=== PATIENT | male | born 1960 | race Two or more races ===

== ENCOUNTER 2018-05-07 15:09 | Outpatient (CLI) | payer OTHER ==
[2018-05-07 15:38] LABS: CALCIUM 9.4 mg/dL (8.5-10.3); CREATININE 0.8 mg/dL (0.6-1.2)
[2018-05-07 16:02] LABS: HB2 TOTAL 17.5 g/dL; HEMOGLOBIN A1C 1.58 g/dL; HEMOGLOBIN A1C % 10.4 % (4.6-6.2)
== END 2018-05-07 15:10 | disposition home or self-care (01) ==
LOC: LAB 15:09
PROVIDERS: ATTEND Internal Medicine
DX: E11.9 Type 2 diabetes mellitus without complications (principal)
CPT/HCPCS: 36415; 80048; 83036

== ENCOUNTER 2018-07-26 13:50 | Outpatient (CLI) | payer OTHER ==
[2018-07-26 14:03] LABS: BASOPHILS # (AUTO) 0.1 10^3/uL (0.0-0.1); BASOPHILS % (AUTO) 0.9 %; EOSINOPHILS # (AUTO) 0.1 10^3/uL (0.0-0.7); EOSINOPHILS % (AUTO) 1.3 %; HGB - HEMOGLOBIN 16.2 g/dL (14.0-18.0); LYMPHOCYTES # (AUTO) 2.2 10^3/uL (1.5-3.5); MEAN CORPUSCULAR HEMOGLOBIN 32.8 pg (27.0-31.0); MEAN CORPUSCULAR HGB CONC 34.5 g/dL (32.0-36.0); MEAN CORPUSCULAR VOLUME 95.2 fL (80.0-94.0); MEAN PLATELET VOLUME 7.7 fL (7.4-11.4); MONOCYTES # (AUTO) 0.4 10^3/uL (0.0-1.0); MONOCYTES % (AUTO) 4.9 %; NEUTROPHILS # (AUTO) 4.7 10^3/uL (1.5-6.6); NEUTROPHILS % (AUTO) 62.9 %; PLT - PLATELET COUNT 229 10^3/uL (130-450); RED BLOOD COUNT 4.94 10^6/uL (4.70-6.10); RED CELL DISTRIBUTION WIDTH 12.1 % (12.0-15.0); WHITE BLOOD COUNT 7.4 x10^3/uL (4.8-10.8)
[2018-07-26 14:14] LABS: CALCIUM 10.1 mg/dL (8.5-10.3); CREATININE 0.9 mg/dL (0.6-1.2)
[2018-07-26 14:30] LABS: HB2 TOTAL 17.2 g/dL; HEMOGLOBIN A1C 1.56 g/dL; HEMOGLOBIN A1C % 10.4 % (4.6-6.2)
== END 2018-07-26 13:51 | disposition home or self-care (01) ==
LOC: LAB 13:50
PROVIDERS: ATTEND Internal Medicine
DX: E11.9 Type 2 diabetes mellitus without complications (principal); Z79.899 Other long term (current) drug therapy
CPT/HCPCS: 36415; 80048; 83036; 85025

== ENCOUNTER 2019-09-08 11:10 | Outpatient (CLI) | payer BC, OTHER ==
--- NOTE | 2019-09-08 13:57 | Ultrasound Report ---
Reason: SCREENING FOR AAA Procedure Date: 09/08/2019 Accession Number: [id number] / [id number] Procedure: US - Aorta Screening CPT Code: Final Report FULL RESULT: EXAM: AORTIC DOPPLER ULTRASOUND EXAM DATE: 09/08/2019 11:28 AM. CLINICAL HISTORY: Screening for AAA. COMPARISON: None. TECHNIQUE: Real-time sonographic imaging of retroperitoneal vascular structures, including color-flow, Doppler flow and spectral analysis was performed by the inventory administrator. Multiple congressional representative static images were saved for review. FINDINGS: Aorta: The abdominal aorta was adequately visualized. No evidence for abdominal aortic aneurysm. Aorta: Proximal: Sagittal AP: 2.3 cm. Mid: Transverse: 1.8 x 1.8 cm. Distal: Transverse: 1.6 x 2.0 cm. Caliber WNL: Yes. Plaque visualized: Yes. Iliacs: Right Iliac: Transverse: 1.3 x 1.2 cm. Left Iliac: Transverse: 1.0 x 1.3 cm. Iliac Vessels: The visualized proximal common iliac arteries are normal in caliber. Other: None. IMPRESSION: No abdominal aortic aneurysm. RADIA
== END 2019-09-08 11:11 | disposition home or self-care (01) ==
LOC: DI 11:10
PROVIDERS: ATTEND Internal Medicine
DX: Z13.6 Encounter for screening for cardiovascular disorders (principal)
CPT/HCPCS: 76706

== ENCOUNTER 2022-02-28 19:13 | Emergency (ER) | payer BC, OTHER ==
[2022-02-28 19:47] LABS: BASOPHILS # (AUTO) 0.1 10^3/uL (0.0-0.1); BASOPHILS % (AUTO) 0.5 %; EOSINOPHILS # (AUTO) 0.4 10^3/uL (0.0-0.7); EOSINOPHILS % (AUTO) 2.8 %; HCT - HEMATOCRIT 35.3 % (42.0-52.0); HGB - HEMOGLOBIN 11.7 g/dL (14.0-18.0); LYMPHOCYTES # (AUTO) 3.2 10^3/uL (1.5-3.5); LYMPHOCYTES % (AUTO) 25.4 %; MEAN CORPUSCULAR HEMOGLOBIN 32.8 pg (27.0-31.0); MEAN CORPUSCULAR HGB CONC 33.1 g/dL (32.0-36.0); MEAN CORPUSCULAR VOLUME 98.9 fL (80.0-94.0); MEAN PLATELET VOLUME 10.2 fL (7.4-11.4); MONOCYTES # (AUTO) 0.8 10^3/uL (0.0-1.0); MONOCYTES % (AUTO) 6.6 %; NEUTROPHILS # (AUTO) 8.2 10^3/uL (1.5-6.6); NEUTROPHILS % (AUTO) 64.2 %; PLT - PLATELET COUNT 321 10^3/uL (130-450); RED BLOOD COUNT 3.57 10^6/uL (4.70-6.10); RED CELL DISTRIBUTION WIDTH 11.9 % (12.0-15.0); WHITE BLOOD COUNT 12.8 x10^3/uL (4.8-10.8)
--- OUTSIDE RECORDS SUMMARY | 2022-02-28 19:48 | EXTERNAL MEDICAL SUMMARY RPT | Continuity of Care Document ---
:1960 Author Organization [facility] Address [address] [place] [address] Phone Allergies No information. Encounters No information. Functional Status No information. Immunizations No information. Medications date description facility [id number]+0000 insulin glargine All [id number]+0000 dorzolamide-timolol All [id number]+0000 netarsudil-latanoprost All [id number]+0000 atorvastatin All [id number]+0000 clopidogrel All [id number]+0000 dorzolamide-timolol All [id number]+0000 metformin All [id number]+0000 clopidogrel All [id number]+0000 atorvastatin All [id number]+0000 netarsudil-latanoprost All [id number]+0000 insulin glargine All 68879926083731+0000 metformin All [id number]+0000 lancets All [id number]+0000 blood sugar diagnostic All Problems No information. Procedures date description facility [id number] Visit Code Hold All [id number]+0000 Visit Code Hold All [id number]+0000 TROPONIN I HIGH SENSITIVITY All Results/Labs test date author facility value unit interpret ation Result panel 1 (unknown) (no (unknown) (unknown) (no value) (units (unk nown) date) unknown) (unknown) (no (unknown) (unknown) [address] [place] [address] (units (unknown) date) unknown) (unknown) (no (unknown) (unknown) [place], [place] (units ( unknown) date) [address] unknown) (unknown) (no (unknown) (unknown) CT Scan Report (units (unknown) date) unknown) (unknown) (no (unknown) (unknown) [facility] (units (unknown) date) unknown) (unknown) (no (unknown) (unknown) Signed (units (unkno wn) date) unknown) (unknown) (no (unknown) (unknown) (no value) (units (unk nown) date) unknown) (unknown) (no (unknown) (unknown) 02/21/22 (units (unkno wn) date) unknown) (unknown) (no (unknown) (unknown) Approved by: (units (u nknown) date) Franck Palacios M.D. unknown) on 02/21/2022 at 9:41 (unknown) (no (unknown) (unknown) Brain: No (units (unk nown) date) intracranial unknown) bleeds or masses. There is cerebral volume loss for (unknown) (no (unknown) (unknown) COMPARISON: (units (un known) date) None. unknown) (unknown) (no (unknown) (unknown) CSF spaces: (units (un known) date) Basal cisterns are unknown) patent. No extra-axial fluid collections. The (unknown) (no (unknown) (unknown) Dictated by: (units (u nknown) date) Franck Palacios M.D. unknown) on 02/21/2022 at 9:39 (unknown) (no (unknown) (unknown) FINDINGS: (units (unkn own) date) unknown) (unknown) (no (unknown) (unknown) IMPRESSION: (units (un known) date) unknown) (unknown) (no (unknown) (unknown) INDICATIONS: (units (u nknown) date) Hemiplegia, unknown) unspecified affecting left nondominant side (unknown) (no (unknown) (unknown) Image quality: (units (unknown) date) Excellent. unknown) (unknown) (no (unknown) (unknown) Mild global (units (un known) date) cerebral volume unknown) loss and chronic microvascular ischemic changes. (unknown) (no (unknown) (unknown) No acute finding. (units (unknown) date) unknown) (unknown) (no (unknown) (unknown) Noncontrast 4.5 (units (unknown) date) mm thick angled unknown) axial sections acquired from the foramen magnum (unknown) (no (unknown) (unknown) Sinuses: (units (unkno wn) date) Visualized sinuses unknown) and mastoids are clear. (unknown) (no (unknown) (unknown) Skull and face: (units (unknown) date) Calvarium and unknown) visualized facial bones appear intact, without (unknown) (no (unknown) (unknown) TECHNIQUE: (units (unk nown) date) unknown) (unknown) (no (unknown) (unknown) artery (units (unkno wn) date) atherosclerosis. unknown) (unknown) (no (unknown) (unknown) lesions. (units (unkno wn) date) unknown) (unknown) (no (unknown) (unknown) matter chronic (units (unknown) date) small vessel unknown) ischemic changes. There is intracranial internal (unknown) (no (unknown) (unknown) resultant (units (unkn own) date) ventricular and unknown) sulcal prominence. There are periventricular and (unknown) (no (unknown) (unknown) size. (units (unkno wn) date) unknown) (unknown) (no (unknown) (unknown) ventricles are (units (unknown) date) symmetric in size unknown) and shape. (unknown) (no (unknown) (unknown) vertex, with (units (u nknown) date) coronal and unknown) sagittal reformats. For radiation dose reduction, the (unknown) (no (unknown) (unknown) was used: (units (unkn own) date) automated exposure unknown) control, adjustment of mA and/or kV according to (unknown) (no (unknown) (unknown) [id number] (units (unkno wn) date) unknown) (unknown) (no (unknown) (unknown) Accession Number: (units (unknown) date) [id number] unknown) (unknown) (no (unknown) (unknown) Age/Sex: 61 / M (units (unknown) date) Date of Service: unknown) (unknown) (no (unknown) (unknown) : 1960 (units (unknown) date) Acct:[id number] unknown) (unknown) (no (unknown) (unknown) Loc: CT (units (unkno wn) date) unknown) (unknown) (no (unknown) (unknown) Ordering (units (unkno wn) date) Provider: unknown) Rita Crum P.A-C (unknown) (no (unknown) (unknown) PROCEDURE: CT (units (unknown) date) HEAD/BRAIN WO CON unknown) (unknown) (no (unknown) (unknown) Patient: (units (unkno wn) date) Servania,Roly unknown) MR#: [id number] (unknown) (no (unknown) (unknown) Procedure: CT (units ( unknown) date) head/brain wo con unknown) (unknown) (no (unknown) (unknown) age, with (units (unkn own) date) unknown) (unknown) (no (unknown) (unknown) carotid (units (unkno wn) date) unknown) (unknown) (no (unknown) (unknown) deep white (units (unk nown) date) unknown) (unknown) (no (unknown) (unknown) following (units (unkn own) date) unknown) (unknown) (no (unknown) (unknown) patient (units (unkno wn) date) unknown) (unknown) (no (unknown) (unknown) suspicious (units (unk nown) date) unknown) (unknown) (no (unknown) (unknown) to the (units (unkno wn) date) unknown) Social History No information. Vital Signs date measurement value units +0000 BMI BMI 26.25 kg/m2 +0000 BP_diastolic BP_diastolic 99 mm[H g] +0000 BP_systolic BP_systolic 194 mm[Hg] +0000 heart_rate heart_rate 98 /min +0000 height_metric height_metric 170.18 cm +0000 height_standard height_standard 67 in +0000 respiration_rate respiration_rate 18 /min +0000 temperature_metric temperature_metric 36.67 C +0000 temperature_standard temperature_standard 9 8 F +0000 weight_metric weight_metric 75.75 kg +0000 weight_standard weight_standard 167 lb [id number]+0000 BMI BMI 26.06 kg/m2 [id number]+0000 BP_diastolic BP_diastolic 98 mm[H g] [id number]+0000 BP_systolic BP_systolic 176 mm[Hg] [id number]+0000 heart_rate heart_rate 100 /min [id number]+0000 height_metric height_metric 170.18 cm [id number]+0000 height_standard height_standard 67 in [id number]+0000 respiration_rate respiration_rate 17 /min +0000 temperature_metric temperature_metric 36.44 C +0000 temperature_standard temperature_standard 9 7.6 F +0000 weight_metric weight_metric 75.21 kg +0000 weight_standard weight_standard 165.8 lb
[2022-02-28 19:56] LABS: ALBUMIN 3.8 g/dL (3.2-5.5); ALBUMIN/GLOBULIN RATIO 1.2 (1.0-2.2); CALCIUM 9.7 mg/dL (8.5-10.3); CREATININE 1.2 mg/dL (0.6-1.2); POTASSIUM 3.9 mmol/L (3.5-5.0); TOTAL PROTEIN 7.1 g/dL (6.7-8.2)
--- NOTE | 2022-02-28 20:07 | XRAY Report ---
PROCEDURE: Chest 1 View X-Ray INDICATIONS: Chest pain TECHNIQUE: One view of the chest was acquired. COMPARISON: None. FINDINGS: Surgical changes and devices: None. Lungs and pleura: No pleural effusions or pneumothorax. Lungs appear clear. Mediastinum: Mediastinal contours appear normal. Heart size is normal. Bones and chest wall: No suspicious bony lesions. Overlying soft tissues appear unremarkable. IMPRESSION: No acute cardiopulmonary abnormality identified. Reviewed by: Brandon Handy MD on 02/28/2022 8:05 PM PDT Approved by: Brandon Handy MD on 02/28/2022 8:05 PM PDT Station ID: [id number]
[2022-02-28] MEDS ORDERED: ENOXAPARIN 80 MG/0.8 ML SYRINGE SUBQ STA (20:22)
[2022-02-28] MEDS ORDERED: ASPIRIN CHEW 81 MG TABLET PO STA (20:22)
--- NOTE | 2022-02-28 20:25 | ED Physician Documentation ---
PD HPI CHEST PAIN - Stated complaint Stated Complaint: ABNORMAL EKG - Chief complaint Chief Complaint: Cardiac - History obtained from History obtained from: Patient - History of Present Illness Timing - onset during: Exertion Timing - details: Gradual onset Pain level max: 7 Pain level now: 4 Quality: Pressure, Tightness Location: Substernal Radiation: No: Jaw, Neck, Back, Abdominal, Left upper extremity, Right upper extremity Improved by: Rest Worsened by: Exertion Associated symptoms: Shortness of air. No: Diaphoresis, Nausea, Vomiting, General Weakness, Palpitations, Cough - Additional information Additional information: Patient is a 61-year-old male who presents to the emergency department with chest pain. This been ongoing for the past 2 weeks intermittently. He states that normally occurs with exertion. When he stops the pressure last for about 5 to 10 minutes and then resolves. He states that today it began occurring at rest. He went to the walk-in clinic and had a "abnormal EKG" and an elevated troponin so they sent him here. The patient is on aspirin. He states he is on Plavix as well but does not know why. He denies any cardiac history. Denies ever having a cardiac stress test or a stent. Patient does have a history of hypertension, hyperlipidemia and diabetes. Review of Systems Ten Systems: 10 systems reviewed and negative Constitutional: denies: Fever, Chills Nose: denies: Rhinorrhea / runny nose, Congestion Throat: denies: Sore throat Cardiac: denies: Palpitations Respiratory: denies: Dyspnea, Cough GI: denies: Abdominal Pain, Nausea, Vomiting, Diarrhea Skin: denies: Rash Musculoskeletal: denies: Neck pain, Back pain Neurologic: denies: Headache PD PAST MEDICAL HISTORY - Past Medical History Past Medical History: Yes Cardiovascular: Hypertension, High cholesterol Endocrine/Autoimmune: Type 2 diabetes - Past Surgical History Past Surgical History: No - Allergies Allergies/Adverse Reactions: Allergies Allergy/AdvReac Type Severity Reaction Status Date / Time No Known Drug Allergies Allergy Verified 02/28/22 19:20 - Living Situation Living Situation: reports: With family Living Arrangement: reports: At home - Social History Does the pt smoke?: No Does the pt have substance abuse?: No - Family History Family history: reports: CAD PD ED PE NORMAL - Vitals Vital signs reviewed: Yes - General General: Alert and oriented X 3, No acute distress, Well developed/nourished - HEENT HEENT: PERRL, Moist mucous membranes - Neck Neck: Supple, no meningeal sign - Cardiac Cardiac: RRR, No murmur, Strong equal pulses - Respiratory Respiratory: No respiratory distress, Clear bilaterally - Abdomen Abdomen: Soft, Non tender, Non distended - Derm Derm: Warm and dry, No rash - Extremities Extremities: No edema, No calf tenderness / cord - Neuro Neuro: Alert and oriented X 3 - Psych Psych: Normal mood, Normal affect Results - Vitals Vitals: Vital Signs - 24 hr 02/28/22 02/28/22 02/28/22 19:20 19:25 19:55 Temperature 36.5 C Heart Rate 110 H 106 H 106 H Respiratory 16 23 24 Rate Blood Pressure 150/82 H 154/108 H O2 Saturation 100 99 99 02/28/22 02/28/22 02/28/22 20:25 20:30 21:18 Temperature Heart Rate 105 H 109 H 112 H Respiratory 23 18 23 Rate Blood Pressure 149/97 H 152/87 H 152/87 H O2 Saturation 99 98 100 Oxygen O2 Source Room air - EKG (time done) 1921 Rate: Rate (enter#) (110) Rhythm: Sinus tachycardia [place]: Normal Intervals: Normal LA QRS: Normal Ischemia: ST depression (I, avL, V4-6) Compare to prior EKG: Old EKG unavailable - Labs Labs: Laboratory Tests 02/28/22 02/28/22 02/28/22 19:36 19:36 19:36 WBC 12.8 H RBC 3.57 L Hgb 11.7 L Hct 35.3 L MCV 98.9 H MCH 32.8 H MCHC 33.1 RDW 11.9 L Plt Count 321 MPV 10.2 Neut # (Auto) 8.2 H Lymph # (Auto) 3.2 Hill # (Auto) 0.8 Eos # (Auto) 0.4 Baso # (Auto) 0.1 Absolute Nucleated RBC 0.00 Nucleated RBC % 0.0 PT INR Sodium 138 Potassium 3.9 Chloride 100 L Carbon Dioxide 26 Anion Gap 12.0 BUN 22 H Creatinine 1.2 Estimated GFR (MDRD) 61 L Glucose 193 H POC Whole Bld Glucose Calcium 9.7 Total Bilirubin 1.0 AST 25 ALT 29 Alkaline Phosphatase 54 Troponin I High Sens 114.3 H* Total Protein 7.1 Albumin 3.8 Globulin 3.3 Albumin/Globulin Ratio 1.2 Lipase 66 H Nasal Adenovirus (PCR) Nasal B. parapertussis DNA (PCR) Nasal Coronavir 229E PCR Nasal Coronavir HKU1 PCR Nasal Coronavir NL63 PCR Nasal Coronavir OC43 PCR Nasal Enterovir/Rhinovir PCR Nasal Influenza B PCR Nasal Influenza A PCR Nasal Parainfluen 1 PCR Nasal Parainfluen 2 PCR Nasal Parainfluen 3 PCR Nasal Parainfluen 4 PCR Nasal RSV (PCR) Nasal B.pertussis DNA PCR Nasal C.pneumoniae (PCR) Chauncey Human Metapneumo PCR Nasal M.pneumoniae (PCR) Nasal SARS-CoV-2 (PCR) 02/28/22 02/28/22 02/28/22 19:39 20:54 20:57 WBC RBC Hgb Hct MCV MCH MCHC RDW Plt Count MPV Neut # (Auto) Lymph # (Auto) Hill # (Auto) Eos # (Auto) Baso # (Auto) Absolute Nucleated RBC Nucleated RBC % PT 11.0 INR 1.0 Sodium Potassium Chloride Carbon Dioxide Anion Gap BUN Creatinine Estimated GFR (MDRD) Glucose POC Whole Bld Glucose 232 H Calcium Total Bilirubin AST ALT Alkaline Phosphatase Troponin I High Sens Total Protein Albumin Globulin Albumin/Globulin Ratio Lipase Nasal Adenovirus (PCR) NOT DETECTED Nasal B. parapertussis DNA (PCR) NOT DETECTED Nasal Coronavir 229E PCR NOT DETECTED Nasal Coronavir HKU1 PCR NOT DETECTED Nasal Coronavir NL63 PCR NOT DETECTED Nasal Coronavir OC43 PCR NOT DETECTED Nasal Enterovir/Rhinovir PCR NOT DETECTED Nasal Influenza B PCR NOT DETECTED Nasal Influenza A PCR NOT DETECTED Nasal Parainfluen 1 PCR NOT DETECTED Nasal Parainfluen 2 PCR NOT DETECTED Nasal Parainfluen 3 PCR NOT DETECTED Nasal Parainfluen 4 PCR NOT DETECTED Nasal RSV (PCR) NOT DETECTED Nasal B.pertussis DNA PCR NOT DETECTED Nasal C.pneumoniae (PCR) NOT DETECTED Chauncey Human Metapneumo PCR NOT DETECTED Nasal M.pneumoniae (PCR) NOT DETECTED Nasal SARS-CoV-2 (PCR) NOT DETECTED - Rads (name of study) cxr Radiology: Final report received, EMP read contemporaneously, See rad report (No acute abnormality) PD MEDICAL DECISION MAKING - ED course Complexity details: reviewed results, re-evaluated patient, considered differential, d/w patient ED course: Patient is a 61-year-old male who presents to the emergency department with what sounds like stable angina over the past week that has now progressed to unstable angina. Also has a slight high-sensitivity troponin elevation. We will treat as an NSTEMI/UA. He was started on Lovenox, 1 mg per kg subq. He already took his Plavix, atorvastatin today. He has asymptomatic here. EKG is concerning for ST depression in the lateral leads. No ST elevation. He was given aspirin here as well. There are no beds available at any hospitals in the [facility]. He is on several wait list. I did discuss the case with Dr. Jones, cardiology from [facility] who does recommend that he be transferred to a cath capable center for heart catheterization. Patient will be signed out to the oncoming emergency department physician awaiting placement. This document was made in part using voice recognition software. While efforts are made to proofread this document, sound alike and grammatical errors may occur. Departure - Departure Disposition: 02 Transfer Acute Care Hosp Clinical Impression: Unstable angina, NSTEMI (non-ST elevated myocardial infarction) Condition: Stable
[2022-02-28] MEDS ORDERED: INSULIN GLARGINE 300 UNIT/3 ML PEN SUBQ STA (20:56)
[2022-02-28 21:52] LABS: CORONAVIRUS 229E-RESP PCR NOT DETECTED
[2022-02-28 21:53] LABS: B. PARAPERTUSSIS- RESP PCR PAN NOT DETECTED; B. PERTUSSIS- RESP PCR PANEL NOT DETECTED; C. PNEUMONIAE- RESP PCR PANEL NOT DETECTED; CORONAVIRUS HKU1-RESP PCR NOT DETECTED; CORONAVIRUS NL63-RESP PCR NOT DETECTED; CORONAVIRUS OC43-RESP PCR NOT DETECTED; HUMAN METAPNEUMOVIRUS NOT DETECTED; INFLUENZA A- RESP PCR PANEL NOT DETECTED; INFLUENZA B - RESP PCR PANEL NOT DETECTED; M. PNEUMONIAE- RESP PCR PANEL NOT DETECTED; PARAINFLUENZA VIRUS 1 NOT DETECTED; PARAINFLUENZA VIRUS 2 NOT DETECTED; PARAINFLUENZA VIRUS 3 NOT DETECTED; PARAINFLUENZA VIRUS 4 NOT DETECTED; RHINOVIRUS/ENTEROVIRUS NOT DETECTED; RSV- RESP PCR PANEL NOT DETECTED; SARS-CoV-2 -RESP PCR PANEL NOT DETECTED
[2022-03-01 06:28] LABS: CALCIUM 9.3 mg/dL (8.5-10.3); CREATININE 0.9 mg/dL (0.6-1.2); POTASSIUM 3.6 mmol/L (3.5-5.0)
[2022-03-01] MEDS: ENOXAPARIN 80 MG/0.8 ML SYRINGE SUBQ SCH ×2 (09:26→20:54)
[2022-03-01] MEDS: ASPIRIN EC 325 MG TABLET PO SCH (09:26)
[2022-03-01] MEDS: CLOPIDOGREL 75 MG TABLET PO SCH (09:26)
--- NOTE | 2022-03-01 18:27 | ED Physician Documentation ---
ED Addendum - Addendum Addendum: 03/01/22 18:26 We are continuing to look for placement for the patient. There are still no beds available in the region. He remains on 4 waitlist. He is asymptomatic currently today. Receiving Lovenox twice daily as well as staying on the aspirin, Plavix and atorvastatin.
[2022-03-01] MEDS ORDERED: ATORVASTATIN 40 MG TABLET PO SCH (21:00)
--- NOTE | 2022-03-01 23:35 | ED Physician Documentation ---
ED Addendum - Addendum Addendum: 03/01/22 23:[address] Sterling Marte (Cardiology, [place]) Who graciously agrees to accept the patient for transfer for treatment of an NSTEMI. Cardiology is not in-house overnight so patient would likely not be able to be transferred until material hauler hours around 8 AM. I did update the patient and his family member at the bedside. 03/02/22 07:11 Opponent slightly decreased. Patient remains pain-free. Pending transfer this morning to [facility]. Care turned over to Dr. Sheppard.
[2022-03-02 06:36] LABS: BASOPHILS # (AUTO) 0.1 10^3/uL (0.0-0.1); BASOPHILS % (AUTO) 0.6 %; EOSINOPHILS # (AUTO) 0.3 10^3/uL (0.0-0.7); EOSINOPHILS % (AUTO) 3.2 %; HCT - HEMATOCRIT 29.7 % (42.0-52.0); HGB - HEMOGLOBIN 9.9 g/dL (14.0-18.0); LYMPHOCYTES # (AUTO) 2.6 10^3/uL (1.5-3.5); LYMPHOCYTES % (AUTO) 31.9 %; MEAN CORPUSCULAR HEMOGLOBIN 32.4 pg (27.0-31.0); MEAN CORPUSCULAR HGB CONC 33.3 g/dL (32.0-36.0); MEAN CORPUSCULAR VOLUME 97.1 fL (80.0-94.0); MEAN PLATELET VOLUME 10.3 fL (7.4-11.4); MONOCYTES # (AUTO) 0.6 10^3/uL (0.0-1.0); MONOCYTES % (AUTO) 6.9 %; NEUTROPHILS # (AUTO) 4.7 10^3/uL (1.5-6.6); PLT - PLATELET COUNT 279 10^3/uL (130-450); RED BLOOD COUNT 3.06 10^6/uL (4.70-6.10); RED CELL DISTRIBUTION WIDTH 12.2 % (12.0-15.0); WHITE BLOOD COUNT 8.2 x10^3/uL (4.8-10.8)
[2022-03-02 06:46] LABS: CREATININE 0.9 mg/dL (0.6-1.2); POTASSIUM 3.5 mmol/L (3.5-5.0)
[2022-03-02 07:46] VITALS: BP 144/102
[2022-03-02] MEDS: CLOPIDOGREL 75 MG TABLET PO SCH (08:32)
[2022-03-02] MEDS: ENOXAPARIN 80 MG/0.8 ML SYRINGE SUBQ SCH (08:33)
[2022-03-02] MEDS: ASPIRIN EC 325 MG TABLET PO SCH (08:47)
== END 2022-03-02 09:13 | disposition short-term general hospital (02) ==
LOC: ED 19:13
DX: I21.4 Non-ST elevation (NSTEMI) myocardial infarction (principal); I10 Essential (primary) hypertension; Z20.822 Contact with and (suspected) exposure to COVID-19; R07.89 Other chest pain
CPT/HCPCS: 36415; 71045; 80048; 80053; 83690; 84484; 85025; 85610; 87633; 93005; 96372; 99285; A9270; J1650; J1815

== ENCOUNTER 2022-05-26 10:27 | Outpatient (CLI) | payer OTHER ==
[2022-05-26 10:46] LABS: BASOPHILS # (AUTO) 0.1 10^3/uL (0.0-0.1); BASOPHILS % (AUTO) 0.7 %; EOSINOPHILS # (AUTO) 0.5 10^3/uL (0.0-0.7); EOSINOPHILS % (AUTO) 6.8 %; HCT - HEMATOCRIT 39.1 % (42.0-52.0); HGB - HEMOGLOBIN 12.6 g/dL (14.0-18.0); LYMPHOCYTES # (AUTO) 1.9 10^3/uL (1.5-3.5); LYMPHOCYTES % (AUTO) 26.1 %; MEAN CORPUSCULAR HEMOGLOBIN 30.5 pg (27.0-31.0); MEAN CORPUSCULAR HGB CONC 32.2 g/dL (32.0-36.0); MEAN CORPUSCULAR VOLUME 94.7 fL (80.0-94.0); MEAN PLATELET VOLUME 9.8 fL (7.4-11.4); MONOCYTES # (AUTO) 0.6 10^3/uL (0.0-1.0); MONOCYTES % (AUTO) 7.9 %; NEUTROPHILS # (AUTO) 4.3 10^3/uL (1.5-6.6); NEUTROPHILS % (AUTO) 58.4 %; PLT - PLATELET COUNT 241 10^3/uL (130-450); RED BLOOD COUNT 4.13 10^6/uL (4.70-6.10); RED CELL DISTRIBUTION WIDTH 12.1 % (12.0-15.0); WHITE BLOOD COUNT 7.4 x10^3/uL (4.8-10.8)
[2022-05-26 11:01] LABS: CALCIUM 9.4 mg/dL (8.5-10.3)
[2022-05-26 11:41] LABS: ESTIMATED AVERAGE GLUCOSE 166 mg/dL (70-100); HEMOGLOBIN A1c% 7.4 % (4.27-6.07)
== END 2022-05-26 10:28 | disposition home or self-care (01) ==
LOC: LAB 10:27
PROVIDERS: ATTEND Internal Medicine
DX: I10 Essential (primary) hypertension (principal); I63.9 Cerebral infarction, unspecified; E11.9 Type 2 diabetes mellitus without complications; Z79.899 Other long term (current) drug therapy
CPT/HCPCS: 36415; 80048; 82607; 83036; 85025

== ENCOUNTER 2022-08-29 09:23 | Outpatient (CLI) | payer OTHER ==
[2022-08-29 09:37] LABS: BASOPHILS # (AUTO) 0.1 10^3/uL (0.0-0.1); BASOPHILS % (AUTO) 0.6 %; EOSINOPHILS # (AUTO) 0.7 10^3/uL (0.0-0.7); EOSINOPHILS % (AUTO) 8.9 %; HCT - HEMATOCRIT 35.6 % (42.0-52.0); HGB - HEMOGLOBIN 11.7 g/dL (14.0-18.0); LYMPHOCYTES # (AUTO) 1.7 10^3/uL (1.5-3.5); LYMPHOCYTES % (AUTO) 22.4 %; MEAN CORPUSCULAR HEMOGLOBIN 30.8 pg (27.0-31.0); MEAN CORPUSCULAR HGB CONC 32.9 g/dL (32.0-36.0); MEAN CORPUSCULAR VOLUME 93.7 fL (80.0-94.0); MEAN PLATELET VOLUME 9.5 fL (7.4-11.4); MONOCYTES # (AUTO) 0.7 10^3/uL (0.0-1.0); MONOCYTES % (AUTO) 8.5 %; NEUTROPHILS # (AUTO) 4.6 10^3/uL (1.5-6.6); NEUTROPHILS % (AUTO) 59.2 %; PLT - PLATELET COUNT 221 10^3/uL (130-450); RED CELL DISTRIBUTION WIDTH 11.9 % (12.0-15.0); WHITE BLOOD COUNT 7.8 x10^3/uL (4.8-10.8)
[2022-08-29 10:05] LABS: % IRON SATURATION 24 % (20-50); ALBUMIN/GLOBULIN RATIO 1.1 (1.0-2.2); ALKALINE PHOSPHATASE 53 IU/L (42-121); ALT ALANINE AMINOTRANSFERASE 37 IU/L (10-60); AST ASPARTATE AMINOTRANSFERASE 28 IU/L (10-42); BUN - BLOOD UREA NITROGEN 27 mg/dL (6-20); CARBON DIOXIDE - CO2 25 mmol/L (21-32); CHLORIDE 99 mmol/L (101-111); CHOL/HDL RATIO 3.8 (<5.0); CHOLESTEROL 145 mg/dL; CREATININE 1.2 mg/dL (0.6-1.2); GFR - MDRD 61 (>89); GLUCOSE 141 mg/dL (70-100); HDL CHOLESTEROL 38 mg/dL; IRON 75 ug/dL (45-182); LDL CHOLESTEROL,CALCULATED 89 mg/dL; LDL/HDL RATIO 2.3 (<3.6); POTASSIUM 3.6 mmol/L (3.5-5.0); SODIUM 133 mmol/L (135-145); TOTAL IRON BINDING CAPACITY 312 ug/dL (250-450); TOTAL PROTEIN 7.5 g/dL (6.7-8.2); TRANSFERRIN 223 mg/dL (180-329); TRIGLYCERIDES 88 mg/dL; VLDL CHOLESTEROL 18 mg/dL
[2022-08-29 10:07] LABS: THYROID STIMULATING HORMONE 4.62 uIU/mL (0.34-5.60)
[2022-08-29 10:15] LABS: FERRITIN 220.4 ng/mL (23.9-336.2)
[2022-08-29 10:19] LABS: FOLATE 12.54 ng/mL (5.90 - >24.8)
[2022-08-29 11:37] LABS: ESTIMATED AVERAGE GLUCOSE 154 mg/dL (70-100)
[2022-08-30 02:07] LABS: HCV AB 0.5 s/co ratio (0.0-0.9)
[2022-08-30 11:12] LABS: CREATININE,URINE 59.2 mg/dL; MICROALBUM/CREATININE RATIO,UR 4702.7 ug/mg (<30.0); MICROALBUMIN,URINE 278.4 mg/dL (0-300.0)
== END 2022-08-29 09:24 | disposition home or self-care (01) ==
LOC: LAB 09:23
PROVIDERS: ATTEND Internal Medicine
DX: Z00.00 Encounter for general adult medical examination without abnormal findings (principal); D64.9 Anemia, unspecified; I63.9 Cerebral infarction, unspecified; E11.9 Type 2 diabetes mellitus without complications; I10 Essential (primary) hypertension; M54.50 Low back pain, unspecified; Z12.5 Encounter for screening for malignant neoplasm of prostate; Z11.59 Encounter for screening for other viral diseases; Z79.899 Other long term (current) drug therapy
CPT/HCPCS: 36415; 80053; 80061; 82043; 82570; 82607; 82728; 82746; 83036; 83540; 83721; 84443; 84466; 85025; 86803

== ENCOUNTER 2022-09-06 14:01 | Outpatient (CLI) | payer OTHER ==
[2022-09-06 14:48] VITALS: BP 148/100
--- NOTE | 2022-09-06 14:48 | SLEEP CARE CONSULTATION ---
Information from patient questionnaire entered by Faiza Arroyo. I have reviewed and concur with the information entered by Faiza Arroyo. This document represents the service I personally performed and the decisions made by me, La Nena Kwok ARNP. History of Present Illness Service Date and Time: 09/06/2022 1401 Reason for Visit: New patient, Previously diagnosed sleep apnea (u), sleep apnea on CPAP therapy Accompanied by: Spouse Chief Complaint: reports: Snoring, Observed pauses in breathing Date of Onset: diagnosed last year Usual bedtime: 10 PM Time it takes to fall asleep: 30 minutes Snores at night: Yes Observed to quit breathing while asleep: Yes Sleeps alone due to snoring: Yes Number of times waking at night: 2 Reasons for waking at night: reports: Bathroom Toss, Turn, or Twitch while sleeping: No Recalls having dreams: No Usually gets out of bed at: 0600 Feels refreshed in the morning: Yes Morning headache: No (RESOLVES AROUND 6AM) Sleepy or fatigued during the day: No Ever fallen asleep while driving: No Takes day naps: Yes (none lately) Dreams during day naps: No Prior sleep studies: Yes [facility] and Where[facility] [place] [place] Additional HPI information: ROLY WASHINGTON was previously diagnosed to have moderate, AHI 29.3, obstructive sleep apnea-hypopnea syndrome and comes in today to establish care for CPAP therapy. He is accompanied by his today. His last sleep provider's office closed and he is need to establish with new office for monitoring of his CPAP. - Parasomnia Symptoms Ever been unable to move upon waking from sleep: No Walks in sleep: No Talks in sleep: No Ever acted out dreams in sleep: No Ever felt weak in the knees when startled or emotional: No Bothered by creepy, crawly, restless sensations in legs: No Problems with memory or concentration: No CPAP Compliance Data - Data Reviewed with Patient Average duration of nightly device use: 9 hours 15 minutes Compliance rate %: 100 (30/30 days used) Current pressure setting (cmH2O): 5-15 (avg 14.3, max 14.8) Average residual AHI: 3.2 Central apnea: 0.0 Obstructive apnea: 0.7 Compliance data discussion: Patient has a ResMed Airsense 11 that was set up on 06/2022. He is getting his supplies from [facility]. He is using a full face mask, 3B [place]. He changes the mask cushion monthly. Subjective Patient concerns: denies: aerophagia, mask discomfort, air blowing in eyes, mask leak noise, condensation in mask/hose, nasal congestion, dry mouth, nose, throat, epistaxis Observed to snore while using device: No Current pressure setting perceived as: comfortable On therapy, patient: reports: sleeping better, awakening more refreshed, being more awake and alert during the day, more rested overall. denies: drowsiness while driving Initial [place] Sleepiness Scale score: 5 (09/04/22) Past Medical History Past Medical History: reports: Hypertension, Diabetes, Stroke (02/10/2022), Anemia Social History The patient's occupation is a [employer]. Patient is and lives in [place]. Have you smoked in the past 12 months: No Cigarettes per day (20/pack): 20 Years of smokin Quit date: 1991 Smoking Pack Years: 8.0 Alcohol use: No Caffeine use: Yes Caffeine amount and frequency: 1-2 CUPS DAILY Family History Family history of sleep disordered breathing: No Allergies and Home Medications Known drug allergies: No Drug allergies reviewed: Yes (NKDA) Home medication list reviewed: Yes (see list scanned in/in EMR) Review of Systems Weight gain over past 5 years: 5 lbs Cardiovascular: reports: high blood pressure Respiratory: denies: shortness of breath Gastrointestinal: denies: heartburn Neurological: denies: headaches Psychiatric: denies: anxiety, depression Ear/Nose/Throat: denies: tonsillectomy Musculoskeletal: reports: back pain, mobility problems Physical Exam Vital signs obtained and entered by: FAIZA Echols MA Blood Pressure: 148/100 (LEFT ARM ) Cuff size: regular Heart Rate: 87 O2 Saturation: 98 Height: 5 ft 6 in Weight: 172 lb 3.2 oz Body Mass Index: 27.8 BMI Classification: Overweight Neck circumference: 16.25 Heart: regular rate and rhythm Lungs: clear bilaterally Impression and Plan 1. Obstructive Sleep Apnea-Hypopnea Syndrome, moderate, with good treatment compliance and good apnea control. On CPAP therapy, the patient has better sleep quality and is more rested overall. Patient's apnea severity and rationale for treatment to reduce apnea, improve sleep quality and reduce cardiovascular and cerebrovascular events was reviewed. I also reviewed the benefit of consistent device use of CPAP for hypertension, cerebrovascular disease and diabetes. 2. Overweight, unspecified. Currently patients BMI is 27.8. Obesity increases the risk of apnea, CPAP pressure requirements and overall health risks especially cardiovascular and diabetes. Thus patient is advised to lose weight. * Continue auto CPAP pressure at 5-15 cmH2O * Update supplies * Notify me if snoring with mask or feeling that the pressure is too much or too little * Attempt to lose weight * Call this office if any problems using CPAP * Return for follow up in [], or sooner if concerns arise Counseling Topics: Spare mask, Weight loss health impact Visit Type: In Office Provider Statement: I spent 100% of the Face to Face Visit with the patient with greater than 50% spent counseling the patient and coordination of care.
== END 2022-09-06 14:02 | disposition home or self-care (01) ==
LOC: SC 14:01
PROVIDERS: ATTEND Nurse Practitioner Family
DX: G47.33 Obstructive sleep apnea (adult) (pediatric) (principal); E66.3 Overweight; Z68.27 Body mass index [BMI] 27.0-27.9, adult; Z87.891 Personal history of nicotine dependence
CPT/HCPCS: 99203; 99212

== ENCOUNTER 2023-10-25 10:26 | Outpatient (CLI) | payer OTHER ==
--- NOTE | 2023-10-25 11:21 | Sleep Patient Instructions ---
Sleep Center Visit Summary - Patient Visit Information Reason for Visit: Annual Follow up - Patient Instructions Additional Instructions: You will continue with CPAP therapy with pressure set at 5-15 cmH2O. A supply prescription will be updated with your DME. I have added an order for a battery backup as requested. I have also added to have the machine serviced. We encourage you to continue to try to lose weight. Please follow up with the sleep care office in 1 year. - Clinic Information Contact: [facility] [address] [place] [address] [email or web address] T: [phone]
--- NOTE | 2023-10-25 11:25 | SLEEP CARE CONSULTATION ---
Information from patient questionnaire entered by Francine Arroyo. I have reviewed and concur with the information entered by Francine Arroyo. This document represents the service I personally performed and the decisions made by me, La Nena Kwok ARNP. History of Present Illness Service Date and Time: 10/25/2023 1026 Previous diagnosis: Moderate, Obstructive Sleep Apnea-Hypopnea Syndrome AHI: 29.3 (05/31/22) Reason for follow up: annual (LAST SEEM 08/2022) Accompanied by: Spouse (Rylee) Equipment type: CPAP (RESMED MACHINE AIRSENSE 11 SET UP 06/16/2022 NO UPDATE SINCE 8 MONTHS AGO NEED MACHINE) Equipment obtained from: Other ([facility]; getting supplies) Mask style: Full face Mask brand: Resmed (AirTouch F20, medium cushion) Backup mask available: Yes Last cushion change: 1 month Prior sleep studies: Yes Year and Where: 05/31/22 [facility] [place], [place] HPI additional information: ROLY WASHINGTON was diagnosed to have moderate, AHI 29.3, obstructive sleep apnea-hypopnea syndrome and returned today for CPAP therapy annual follow-up. Sleep Study - Results Prior sleep studies: Yes Year and Where: 05/31/22 [facility] [place], [place] CPAP Compliance Data - Data Reviewed with Patient Average duration of nightly device use: 10.1 hours Compliance rate %: 99 (12 month avg off machine; 365/365 days used) Current pressure setting (cmH2O): 5-15 (avg 1.2) Average residual AHI: 11.4 Central apnea: 0.6 Obstructive apnea: 0.3 Average large leak: 40 L/min Subjective Patient concerns: reports: dry mouth, nose, throat (dry mouth, occasional). denies: aerophagia, mask discomfort, air blowing in eyes, mask leak noise, condensation in mask/hose, epistaxis Observed to snore while using device: Yes (occasionally when on his side) Current pressure setting perceived as: comfortable On therapy, patient: reports: sleeping better, awakening more refreshed, being more awake and alert during the day, more rested overall. denies: drowsiness while driving (he does not drive) Initial [place] Sleepiness Scale score: 5 (09/04/22) Current [place] Sleepiness Scale score: 9 (10/25/23) Allergies and Home Medications Known drug allergies: No Drug allergies reviewed: Yes Home medication list reviewed: Yes (no changes) Allergy and home medication list: Allergies No Known Drug Allergies Allergy (Verified 10/23/23 09:49) Review of Systems Review of systems same as previous: Yes (NO CHANGE) Physical Exam Vital signs obtained and entered by: FRANCINE Echols MA Blood Pressure: 129/66 (LEFT ARM) Cuff size: regular Heart Rate: 49 O2 Saturation: 97 Height: 5 ft 6 in Weight: 189 lb 12.8 oz Body Mass Index: 30.6 BMI Classification: Obese Impression and Plan 1. Obstructive Sleep Apnea-Hypopnea Syndrome, moderate, with good treatment compliance and fair apnea control with elevated residual AHI. On CPAP therapy, the patient has better sleep quality and is more rested overall. His residual is mildly elevated with a large leak average of 40.1 L/minute. I think the elevation is falsely elevated and do not think he needs any pressure adjustment today. His machine is not uploading data to the website, not since February 2023. I was able to find a yearly data on the machine showing good compliance. Patient's apnea severity and rationale for treatment to reduce apnea, improve sleep quality and reduce cardiovascular and cerebrovascular events was reviewed. I also reviewed the benefit of consistent device use of CPAP for hypertension, cerebrovascular disease (stroke), diabetes. 2. Obesity, unspecified. Currently patients BMI is 30.6. Obesity increases the risk of apnea, CPAP pressure requirements and overall health risks especially cardiovascular and diabetes. Thus patient is advised to lose weight. * Continue auto CPAP pressure at 5-15 cmH2O * Service machine, not downloading data * Update supply prescription * Notify me if snoring with mask or feeling that the pressure is too much or too little * Attempt to lose weight * Call this office if any problems using CPAP * Return for follow up in 12 months, or sooner if concerns arise Continue with device pressure at (cmH2O): 5-15 Counseling Topics: Spare mask, Weight loss health impact Prescriptions: Device supplies Follow up with Sleep Care in: 1 year Visit Type: In Office Time Spent with Patient (minutes): 23 Provider Statement: I spent 100% of the Face to Face Visit with the patient with greater than 50% spent counseling the patient and coordination of care.
[2023-10-25 11:33] VITALS: BP 129/66; O2SAT 97
== END 2023-10-25 10:27 | disposition home or self-care (01) ==
LOC: SC 10:26
PROVIDERS: ATTEND Nurse Practitioner Family
DX: G47.33 Obstructive sleep apnea (adult) (pediatric) (principal); E66.9 Obesity, unspecified; Z68.30 Body mass index [BMI] 30.0-30.9, adult
CPT/HCPCS: 99212; 99213

== ENCOUNTER 2023-11-05 07:18 | Outpatient (CLI) | payer OTHER ==
--- NOTE | 2023-11-05 13:03 | Ultrasound Report ---
PROCEDURE: Abdomen Complete INDICATIONS: ABD DISTENTION TECHNIQUE: Real-time scanning was performed of the abdominal and retroperitoneal organs, with image documentatio n. COMPARISON: None. FINDINGS: Liver: Liver is normal in size and homogeneous in echotexture. Gallbladder: Unremarkable. Biliary ducts: Intrahepatic bile ducts are non-dilated. Extrahepatic bile duct caliber measures 6 m m. Normal is 6-7 mm or less in diameter, or 10 mm or less post-cholecystectomy. Pancreas: Visualized portions of the pancreas are sonographically normal. Spleen: Spleen is normal in size and homogeneous in echotexture. Kidneys: Kidneys are normal in size and echotexture. Right kidney measures 11.9 cm long; left kidne y measures 11.7 cm long. No hydronephrosis or nephrolithiasis. No solid masses. No complex renal cy stic lesions which require follow-up. Aorta: Visualized aorta is normal in caliber at less than 3 cm. Iliacs: Proximal common iliac arteries are normal in caliber at less than 2.5 cm. IVC: Intrahepatic inferior vena cava is patent. Miscellaneous: There is a moderate amount of perihepatic fluid and a small amount of perisplenic flu id. IMPRESSION: 1. Perihepatic and perisplenic fluid. 2. Otherwise unremarkable abdominal ultrasound. Reviewed by: Frieda Vargas MD on 11/05/2023 1:01 PM PDT Approved by: Frieda Vargas MD on 11/05/2023 1:01 PM PDT Station ID: [id number]
== END 2023-11-05 07:19 | disposition home or self-care (01) ==
LOC: DI 07:18
PROVIDERS: ATTEND Internal Medicine
DX: R19.07 Generalized intra-abdominal and pelvic swelling, mass and lump (principal)

== ENCOUNTER 2023-11-10 09:59 | Outpatient (CLI) | payer OTHER ==
[2023-11-10 10:20] LABS: BASOPHILS % (AUTO) 0.5 %; EOSINOPHILS # (AUTO) 0.2 10^3/uL (0.0-0.7); HCT - HEMATOCRIT 28.8 % (42.0-52.0); HGB - HEMOGLOBIN 8.7 g/dL (14.0-18.0); LYMPHOCYTES % (AUTO) 13.5 %; MEAN CORPUSCULAR HEMOGLOBIN 29.4 pg (27.0-31.0); MEAN CORPUSCULAR HGB CONC 30.2 g/dL (32.0-36.0); MEAN CORPUSCULAR VOLUME 97.3 fL (80.0-94.0); MEAN PLATELET VOLUME 10.6 fL (7.4-11.4); MONOCYTES # (AUTO) 0.5 10^3/uL (0.0-1.0); MONOCYTES % (AUTO) 7.1 %; NEUTROPHILS # (AUTO) 5.5 10^3/uL (1.5-6.6); NEUTROPHILS % (AUTO) 75.4 %; PLT - PLATELET COUNT 173 10^3/uL (130-450); RED BLOOD COUNT 2.96 10^6/uL (4.70-6.10); RED CELL DISTRIBUTION WIDTH 15.1 % (12.0-15.0); WHITE BLOOD COUNT 7.3 x10^3/uL (4.8-10.8)
[2023-11-10 10:34] LABS: ALBUMIN 3.4 g/dL (3.2-5.5); ALBUMIN/GLOBULIN RATIO 1.1 (1.0-2.2); ALKALINE PHOSPHATASE 96 IU/L (42-121); ALT ALANINE AMINOTRANSFERASE 18 IU/L (10-60); AST ASPARTATE AMINOTRANSFERASE 18 IU/L (10-42); BILIRUBIN,TOTAL 0.7 mg/dL (0.2-1.0); BUN - BLOOD UREA NITROGEN 32 mg/dL (6-20); CALCIUM 8.8 mg/dL (8.5-10.3); CARBON DIOXIDE - CO2 25 mmol/L (21-32); CHLORIDE 109 mmol/L (101-111); CHOL/HDL RATIO 4.3 (<5.0); CHOLESTEROL 117 mg/dL; CREATININE 2.5 mg/dL (0.6-1.3); GFR - MDRD 26 (>89); GLUCOSE 83 mg/dL (74-104); HDL CHOLESTEROL 27 mg/dL; LDL CHOLESTEROL,CALCULATED 70 mg/dL; LDL/HDL RATIO 2.6 (<3.6); POTASSIUM 4.2 mmol/L (3.5-4.5); SODIUM 138 mmol/L (135-145); TOTAL PROTEIN 6.4 g/dL (6.4-8.9); TRIGLYCERIDES 98 mg/dL (48-352); VLDL CHOLESTEROL 20 mg/dL
[2023-11-10 10:50] LABS: THYROID STIMULATING HORMONE 7.96 uIU/mL (0.34-5.60)
[2023-11-10 18:37] LABS: CREATININE,URINE 134.1 mg/dL
[2023-11-10 19:10] LABS: MICROALBUMIN,URINE > 225.0 mg/dL
[2023-11-10 19:36] LABS: ESTIMATED AVERAGE GLUCOSE 163 mg/dL (70-100); HEMOGLOBIN A1c% 7.3 % (4.27-6.07)
== END 2023-11-10 10:00 | disposition home or self-care (01) ==
LOC: LAB 09:59
PROVIDERS: ATTEND Internal Medicine
DX: R06.09 Other forms of dyspnea (principal); R60.9 Edema, unspecified; E11.9 Type 2 diabetes mellitus without complications; D64.9 Anemia, unspecified
CPT/HCPCS: 36415; 80053; 80061; 82043; 82570; 83036; 83721; 83880; 84153; 84443; 85025

== ENCOUNTER 2024-02-24 13:23 | Outpatient (CLI) | payer OTHER ==
--- NOTE | 2024-02-24 22:58 | Ultrasound Report ---
PROCEDURE: Renal (Retroperitoneal) INDICATIONS: ACUTE KIDNEY INJURY TECHNIQUE: Real-time scanning was performed of the retroperitoneal organs, with image documentation. COMPARISON: Ultrasound of abdomen dated 11/05/2023. FINDINGS: Kidneys: Kidneys are normal in size. Right kidney measures 12.1 cm long; left kidney measures 12.5 cm long. Right renal cortical thickness is 0.8 cm; left renal cortical thickness is 1.4 cm. No maryann d masses, hydronephrosis, or nephrolithiasis. Bladder: Pre-void bladder volume is 93.13 mL. Post-void residual is 8.3 mL. Pre-void images demons trate no intraluminal masses or stones. On pre-void images, bilateral ureteral jets are noted with c olor Doppler interrogation. (Of note, ureteral jets may not be detectable in up to 25% of cases due to insufficient differences in specific gravity between ureteral and bladder urine). Miscellaneous: Small to moderate amount of ascites fluid is seen adjacent to the liver and spleen. IMPRESSION: 1. No gross abnormality is seen in bilateral kidneys and urinary bladder. 2. Small to moderate amount of ascites fluid which was also noted on previous abdominal ultrasound. Reviewed by: Vincent Subramanian MD on 02/24/2024 10:57 PM PDT Approved by: Vincent Subramanian MD on 02/24/2024 10:57 PM PDT Station ID: [id number]
== END 2024-02-24 13:24 | disposition home or self-care (01) ==
LOC: DI 13:23
PROVIDERS: ATTEND Internal Medicine Nephrology
DX: R18.8 Other ascites (principal); N17.9 Acute kidney failure, unspecified

== ENCOUNTER 2024-03-06 11:59 | Outpatient (CLI) | payer OTHER ==
[2024-03-06 12:18] LABS: BASOPHILS % (AUTO) 0.4 %; EOSINOPHILS # (AUTO) 0.2 10^3/uL (0.0-0.7); EOSINOPHILS % (AUTO) 3.1 %; HCT - HEMATOCRIT 23.2 % (42.0-52.0); HGB - HEMOGLOBIN 7.3 g/dL (14.0-18.0); LYMPHOCYTES # (AUTO) 0.7 10^3/uL (1.5-3.5); LYMPHOCYTES % (AUTO) 10.1 %; MEAN CORPUSCULAR HEMOGLOBIN 31.2 pg (27.0-31.0); MEAN CORPUSCULAR HGB CONC 31.5 g/dL (32.0-36.0); MEAN CORPUSCULAR VOLUME 99.1 fL (80.0-94.0); MEAN PLATELET VOLUME 10.6 fL (7.4-11.4); MONOCYTES # (AUTO) 0.5 10^3/uL (0.0-1.0); MONOCYTES % (AUTO) 6.8 %; NEUTROPHILS # (AUTO) 5.8 10^3/uL (1.5-6.6); NEUTROPHILS % (AUTO) 79.1 %; PLT - PLATELET COUNT 163 10^3/uL (130-450); RED BLOOD COUNT 2.34 10^6/uL (4.70-6.10); RED CELL DISTRIBUTION WIDTH 15.2 % (12.0-15.0); WHITE BLOOD COUNT 7.3 x10^3/uL (4.8-10.8)
[2024-03-06 12:53] LABS: FERRITIN 97.6 ng/mL (23.9-336.2)
[2024-03-06 22:22] LABS: ESTIMATED AVERAGE GLUCOSE 154 mg/dL (70-100)
[2024-03-08 16:08] LABS: HBV IU/ML 620 IU/mL (.); HBV IU/ML LOG10 2.792 (.)
== END 2024-03-06 12:00 | disposition home or self-care (01) ==
LOC: LAB 11:59
PROVIDERS: ATTEND Internal Medicine
DX: D64.9 Anemia, unspecified (principal); B18.1 Chronic viral hepatitis B without delta-agent; I25.10 Atherosclerotic heart disease of native coronary artery without angina pectoris; E11.9 Type 2 diabetes mellitus without complications
CPT/HCPCS: 36415; 82728; 83036; 83540; 84460; 84466; 85025; 87517

== ENCOUNTER 2024-03-28 12:53 | Outpatient (CLI) | payer OTHER | END 2024-03-28 12:54 | disposition home or self-care (01) | LOC: NS 12:53 | PROVIDERS: ATTEND Internal Medicine | DX: Z71.3 Dietary counseling and surveillance (principal); E11.22 Type 2 diabetes mellitus with diabetic chronic kidney disease; N18.9 Chronic kidney disease, unspecified; Z68.28 Body mass index [BMI] 28.0-28.9, adult; D63.1 Anemia in chronic kidney disease; D70.9 Neutropenia, unspecified; D50.0 Iron deficiency anemia secondary to blood loss (chronic) | CPT/HCPCS: 36415; 82728; 83540; 84466; 85025; 97802 ==

== ENCOUNTER 2024-03-28 15:06 | Outpatient (CLI) | payer OTHER ==
[2024-03-28 15:21] LABS: BASOPHILS % (AUTO) 0.7 %; EOSINOPHILS # (AUTO) 0.2 10^3/uL (0.0-0.7); EOSINOPHILS % (AUTO) 4.1 %; HCT - HEMATOCRIT 25.2 % (42.0-52.0); HGB - HEMOGLOBIN 8.2 g/dL (14.0-18.0); LYMPHOCYTES # (AUTO) 0.7 10^3/uL (1.5-3.5); LYMPHOCYTES % (AUTO) 13.1 %; MEAN CORPUSCULAR HEMOGLOBIN 32.3 pg (27.0-31.0); MEAN CORPUSCULAR HGB CONC 32.5 g/dL (32.0-36.0); MEAN CORPUSCULAR VOLUME 99.2 fL (80.0-94.0); MEAN PLATELET VOLUME 10.2 fL (7.4-11.4); MONOCYTES # (AUTO) 0.4 10^3/uL (0.0-1.0); MONOCYTES % (AUTO) 6.2 %; NEUTROPHILS # (AUTO) 4.3 10^3/uL (1.5-6.6); NEUTROPHILS % (AUTO) 75.7 %; PLT - PLATELET COUNT 155 10^3/uL (130-450); RED BLOOD COUNT 2.54 10^6/uL (4.70-6.10); RED CELL DISTRIBUTION WIDTH 14.1 % (12.0-15.0); WHITE BLOOD COUNT 5.7 x10^3/uL (4.8-10.8)
[2024-03-28 15:59] LABS: FERRITIN 107.7 ng/mL (23.9-336.2)
== END 2024-03-28 15:07 | disposition home or self-care (01) ==
LOC: LAB 15:06
PROVIDERS: ATTEND Internal Medicine Nephrology
DX: D70.9 Neutropenia, unspecified (principal); D63.1 Anemia in chronic kidney disease; D50.0 Iron deficiency anemia secondary to blood loss (chronic)
CPT/HCPCS: 36415; 82728; 83540; 84466; 85025

== ENCOUNTER 2024-05-02 09:07 | Outpatient (CLI) | payer OTHER ==
--- NOTE | 2024-05-02 21:23 | XRAY Report ---
PROCEDURE: Chest 2V INDICATIONS: DYSPNEA, PULMONARY EDEMA TECHNIQUE: 2 views of the chest were acquired. COMPARISON: Ultrasound abdomen 11/05/2023, chest x-ray 02/28/2022 FINDINGS: Surgical changes and devices: None. Lungs and pleura: At least moderate right pleural effusion with an air-fluid level at the right lung base. The left lung parenchyma is clear. No left pneumothoracic pleural effusion. Mediastinum: Aortic arch calcifications. Coronary artery calcifications. Mediastinal contours appear normal. Heart size is normal. Bones and chest wall: No suspicious bony lesions. Overlying soft tissues appear unremarkable. IMPRESSION: New layering, moderate right pleural effusion. Underlying infection is a possibility. CT chest with c ontrast recommended for further evaluation. Reviewed by: Cb Eugene MD on 05/02/2024 9:22 PM PDT Approved by: Cb Eugene MD on 05/02/2024 9:22 PM PDT Station ID: [id number]
[2024-05-03 03:11] LABS: HEPATITIS B SURFACE AB QUANT <3.5 mIU/mL (Immunity>10)
[2024-05-03 07:12] LABS: HBsAG CONFIRMATION Positive (.); HBsAG SCREEN Confirm. indicated (Negative)
== END 2024-05-02 09:08 | disposition home or self-care (01) ==
LOC: LAB 09:07
PROVIDERS: ATTEND Internal Medicine Nephrology
DX: B19.10 Unspecified viral hepatitis B without hepatic coma (principal); R06.00 Dyspnea, unspecified; J81.1 Chronic pulmonary edema; J90 Pleural effusion, not elsewhere classified
CPT/HCPCS: 36415; 86317; 86704; 87340